=== PATIENT | female | born 1960 | race Hispanic/Latino ===

== ENCOUNTER 2016-11-23 08:07 | Emergency (ER) | payer OTHER, MEDICAID ==
[2016-11-23] MEDS ORDERED: MORPHINE SULFATE 2 MG/ML SYR ONE (08:43)
[2016-11-23] MEDS ORDERED: NITROGLYCERIN 250 ML IV ONE (08:43)
[2016-11-23 08:44] LABS: BLOOD UREA NITROGEN 16 mg/dL (7-17); CALCIUM 9.2 mg/dL (8.4-10.2); CHLORIDE 106 mmol/L (98-107); CREATININE 0.9 mg/dL (0.5-1.0); EST GLOMERULAR FILTRATION RATE > 60 mL/min; MAGNESIUM 1.1 mg/dL (1.6-2.3); POTASSIUM 3.8 mmol/L (3.5-5.1); SODIUM 140 mmol/L (137-145)
[2016-11-23 08:49] LABS: GLUCOSE 256 mg/dL (70-100)
--- NOTE | 2016-11-23 08:52 | RADIOLOGY REPORT ---
HISTORY: Chest pain COMPARISON: None. FINDINGS: Single portable upright view of the chest was obtained. Postoperative changes of previous median sternotomy and CABG are noted. The heart is not enlarged. Me diastinum is not widened. There is atherosclerotic calcification of the aorta. The aortic knob is not enlarged. The trachea is midline. Pulmonary vascularity is within normal limits. Lungs are hypoventilated. No confluent infiltrate or consolidation. There is elevation of the right d iaphragm. No pneumothorax or pleural effusion. IMPRESSION: 1. Postoperative changes of previous median sternotomy and CABG. 2. No acute chest disease. Final Electronic Signature: This report was electronically signed by hTai Redman MD on 11/23/2016 8:4 9 AM. [facility] /
[2016-11-23 08:54] LABS: BASOPHILS 0.6 % (0.0-2.0); EOSINOPHILS 6.2 % (0.0-6.0); EOSINOPHILS# 0.4 X 10^3uL (0.0-0.4); HEMATOCRIT 39.8 % (36.0-48.0); HEMOGLOBIN 13.3 g/dL (12.0-16.0); LYMPHOCYTES 25.6 % (20.0-40.0); LYMPHOCYTES# 1.5 X 10^3uL (0.8-3.8); MEAN CORPUS. HGB CONCENTRATION 33.4 g/dL (32.0-36.0); MEAN CORPUSCULAR HEMOGLOBIN 29.4 pg (29.0-35.0); MEAN PLATELET VOLUME 7.3 fL (7.4-10.4); MONOCYTES 5.1 % (2.0-10.0); MONOCYTES# 0.3 X 10^3uL (0.2-1.0); NEUTROPHILS 62.5 % (54.0-75.0); NEUTROPHILS# 3.5 X 10^3uL (2.6-6.7); PLATELET COUNT 222 X 10^3uL (130-440); RED BLOOD COUNT 4.52 X 10^6uL (4.20-6.10); RED CELL DISTRIBUTION WIDTH 13.1 % (11.5-14.5); WHITE BLOOD COUNT 5.7 X 10^3uL (3.9-10.7)
[2016-11-23 08:56] LABS: TROPONIN I < 0.012 ng/mL (0.00-0.034)
[2016-11-23] MEDS ORDERED: MAGNESIUM SULFATE IV ONE (10:00)
[2016-11-23] MEDS ORDERED: DEXTROSE 5% IV ONE (10:00)
--- NOTE | 2016-11-23 14:59 | ER NURSING DOCUMENTATION ---
Nurse's Notes [facility] Name:Zuleima Julio Age:56 yrs Sex:Female :1960 Arrival Date:11/23/2016 Time:08:07 BedTrauma C Private MD:Nori Lomeli Diagnosis:Chest Pain;Hypomagnesemia Presentation: 11/23 08:08 Presenting complaint: Patient states: pt had chest pain on and off yesterday then today st at 7:30 AM the pain became constant and was not relieved by three nitros. Pt states she has had SOB with it and that it feels similar )though not as bad) as her other cardiac complaints. Transition of care: Home. AIR CAT ACTIVATION no. Asprin Given Given in ED. 08:08 Method Of Arrival: Private Vehicle st 08:22 Acuity: ADAMARIS 2 st 08:28 Notified ED Physician of Dr. Omalley notified. st Triage Assessment: 08:08 General: Appears uncomfortable, Behavior is agitated, cooperative. Pain: Complains of st pain in left breast Pain currently is 9 out of 10 on a pain scale. Pain began 2 hours ago. Cardiovascular: Capillary refill < 3 seconds Heart tones present Pulses are all present. Reports shortness of breath Rhythm is regular Chest pain radiates none has moved or radiated since the onset. No movement or migration of chest pain, began 2 hours prior to arrival. Respiratory: No deficits noted. GI: No deficits noted. Historical: - Allergies: Vicodin; - Home Meds: 1. amlodipine oral 2. aspirin 81 mg oral tab 1 tab once daily 3. Atrovastatin 4. metformin oral 5. carvedilol oral 6. clopidogrel oral 7. glyburide Oral 8. losartan oral 9. ProAir HFA inhalation - PMHx: CAD; DIABETES - IDDM; - PSHx: CABG; TONSILLECTOMY; ; - Tetanus: < 10 years. - Ebola Screening: : Patient denies exposure to infectious person. Patient denies travel to an Ebola-affected area in the 21 days before illness onset. . - Immunization history: Pneumococcal vaccine status is unknown. - Social history: Smoking status: Patient states former smoker of tobacco. Patient/guardian denies using alcohol, marijuana. Screenin:01 Infectious Disease Risk None. Abuse screen: Denies threats or abuse. Denies injuries st from another. pt feels safe at home. Nutritional screening: No deficits noted. Assessment: 09:31 General: pt resting quietly.. st 10:15 General: pt resting quietly pt remains pain free. . st 11:39 General: pt is waiting on cardiac consult. . st 13:24 General: pt going to stress test. . st Vital Signs: 08:16 BP 115 / 69; Pulse 69; Resp 18; Pulse Ox 93% on R/A; Pain 7/10; st 08:35 BP 103 / 65; Pulse 69; Resp 20; Pulse Ox 93% ; st 08:40 Pain 3/10; st 08:40 BP 105 / 65; Pulse 70; Resp 18; Pulse Ox 91% ; st 08:50 BP 112 / 69; Pulse 69; Resp 18; Pulse Ox 93% ; st 08:57 Pain 1/10; st 09:00 BP 105 / 64; Pulse 68; Resp 16; Pulse Ox 90% ; st 09:10 BP 98 / 64; Pulse 74; Pulse Ox 88% ; st 09:12 Pain 0/10; st 09:20 BP 112 / 62; Pulse 71; Resp 18; Pulse Ox 91% ; st 09:30 BP 93 / 57; Pulse 65; Resp 18; Pulse Ox 89% ; st 09:31 Pain 0/10; st 09:40 BP 96 / 56; Pulse 66; Resp 18; Pulse Ox 92% ; st 09:50 BP 98 / 60; Pulse 64; Resp 17; Pulse Ox 93% ; st 10:00 BP 100 / 59; Pulse 61; Resp 17; Pulse Ox 93% ; st 10:10 BP 102 / 59; Pulse 66; Resp 19; Pulse Ox 93% on 2 lpm NC; st 10:30 BP 96 / 59; Pulse 74; Resp 16; Pulse Ox 93% ; st 10:40 BP 93 / 59; Resp 16; Pulse Ox 94% on 2 lpm NC; Pain 0/10; st 10:50 BP 94 / 52; Pulse 69; Resp 20; Pulse Ox 96% ; st 11:00 BP 95 / 61; Pulse 63; Pulse Ox 98% ; Pain 0/10; st 11:10 BP 90 / 63; Pulse 65; Resp 18; Pulse Ox 98% ; st 11:20 BP 105 / 64; Pulse 77; Resp 20; Pulse Ox 99% ; st 11:30 BP 106 / 61; Pulse 60; Resp 13; st 11:40 BP 104 / 61; Pulse 73; Resp 15; Pulse Ox 99% ; Pain 0/10; st 11:50 BP 107 / 72; Pulse 69; Resp 15; Pulse Ox 100% ; st 12:00 BP 111 / 70; Pulse 84; Resp 18; Pulse Ox 97% ; st 12:30 BP 108 / 86; Pulse 65; Resp 17; Pulse Ox 92% ; Pain 0/10; st 12:40 BP 123 / 72; Pulse 64; Resp 14; Pulse Ox 100% ; st 13:00 BP 121 / 77; Pulse 75; Resp 16; Pulse Ox 98% on 2 lpm NC; st 13:11 BP 133 / 76; Pulse 69; Resp 19; st 14:24 BP 121 / 74; Pulse 84; Pulse Ox 93% on R/A; Pain 0/10; st ED Course: 08:08 Patient arrived in ED. ama 08:08 Nori Lomeli DO is Private Physician. ama 08:13 EKG done per protocol. Performed by ED Staff. Shown to ED physician. st 08:15 Inserted peripheral IV: 20 gauge in right antecubital area and blood collected. st 08:22 Fina Desai RN is Primary Nurse. st 08:[address] 08:37 Port Xray Completed. ms 09:01 Valuables Remains with patient Patient has correct armband on for positive st identification. Placed in gown. Bed in low position. Side rails up X 1. research director on. Pulse ox on. NIBP on. 09:02 Gonzalez Omalley MD is Attending Physician. tl1 09:31 Oxygen Oxygen administration via nasal cannula @ 2L/min. st 10:[address] 13:08 Assisted to bathroom. pt is not dizzy and denies any chest pain with walk to restroom. st 14:47 Nori Lomeli DO is Referral Physician. tl1 14:48 Tyler Rubio MD is Referral Physician. tl1 Administered Medications: 08:36 Drug: morphine 2 mg; Route: IVP; Site: right antecubital; st 08:43 Follow up: Response: Pain is decreased st 08:37 Drug: NS 0.9% 1000 ml; Route: IV; Rate: 50 ml/hr; Site: right antecubital; st 11:14 Follow up: IV Status: Completed infusion; IV Intake: 200ml st 08:40 Drug: Aspirin 162 mg; Route: PO; st 08:43 Follow up: Response: No adverse reaction st 08:48 Drug: Nitro Drip - (Nitroglycerin 50 mg, D5W 250 ml); Route: IV; Rate: 10 mcg/min; st Site: right antecubital; 08:57 Follow up: Rate change 15 mcg/min st 10:52 Follow up: IV Status: Infusion discontinued st 09:30 Drug: Magnesium Sulfate 2 grams; Route: IVPB; Infused Over: 2 hrs; Site: right st antecubital; 11:28 Follow up: IV Status: Completed infusion; IV Intake: 100ml st 11:14 Drug: NS 0.9% 500 ml; Route: IV; Rate: bolus; Site: right antecubital; st 13:12 Follow up: IV Status: Completed infusion; IV Intake: 800ml st Intake: 11:14 IV: 200ml; Total: 200ml. st 11:28 IV: 100ml; Total: 300ml. st 13:12 IV: 800ml; Total: 1100ml. st Outcome: 13:28 Transferred: st 14:48 IV D/Paulino st 14:49 Discharge ordered by . tl1 14:58 Condition: improved st 14:58 Discharge instructions given to patient, Instructed on discharge instructions, follow up and referral plans. medication usage, Prescriptions given X 1. 14:59 Patient [address] the ED. st 03/04 09:11 Discharge F/U Call: Unable to reach: no answer st Signatures: Fina Desai RN RN st StricklandRobina ms, Andrew, Beni Reg Gonzalez Patricia MD MD tl1
--- NOTE | 2016-11-23 14:59 | ER PHYSICIAN DOCUMENTATION ---
Physician Documentation [facility] Name:Zuleima Julio Age:56 yrs Sex:Female :1960 Arrival Date:11/23/2016 Time:08:07 BedTrauma C Private MD:Nori Lomeli ED, Tom Disposition: 11/23 16:45 Critical Care: not applicable. tl1 17:43 Chart complete. tl1 Disposition: 11/23/16 14:49 Discharged to Home/Self Care. Impression: Chest Pain, Hypomagnesemia. - Condition is Good. - Discharge Instructions: CHEST PAIN, Noncardiac. - Prescriptions for Nitrostat 0.4 mg Sublingual Tablet, Sublingual - place 1 tablet by SUBLINGUAL route one time As needed - at the first sign of an attack; no more than 3 tablets are recommended within a 15 minute period.; 25 tablet. - Medical Reconciliation form form. - Follow up: Nori Lomeli DO; When: 7 - 10 days; Reason: Recheck today's complaints, Continuance of care. Follow up: Tyler Rubio MD; When: 4- 6 days; Reason: Recheck today's complaints, Continuance of care. - Problem is an ongoing problem. - Symptoms have improved. - Notes: YOUR MAGNESIUM WAS FAIRLY LOW. FOR NOW, EATFOODS WITH A HIGH MAGNESIUM CONTENT SUCH DARK LEAFY GREENS, NUTS AND SEEDS, FISH, SOYBEANS, AVOCADOS, BANANAS AND DARK CHOCOLATE. HPI: 08:45 This 56 yrs old Female presents to ER via Private Vehicle with complaints of Chest Pain.tl1 09:00 . tl1 09:30 She has a history of CAD, s/p CABG X 5 in 2013, and PTCA x 2 in 02/05. 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 Since then she said she has done well until yesterday when she had several episodes of sharp, left infrapectoral pain, that came on at rest, and which lasted no more than 2 minutes. She did not take SLNTG for any of these. She was OK overnight until about 8 AM when while sitting she had the recurrence of the same type of pain, with some slight left shoulder discomfort. This was 8/10 after a few minutes. She took SLNTG X 2, with a decrease in the pain to about a 3/10, and has not further diminished. No dyspnea, n/v/palpitations, diaphoresis. . 16:45 . tl1 Historical: - Allergies: Vicodin; - Home Meds: 1. amlodipine oral 2. aspirin 81 mg oral tab 1 tab once daily 3. Atrovastatin 4. metformin oral 5. carvedilol oral 6. clopidogrel oral 7. glyburide Oral 8. losartan oral 9. ProAir HFA inhalation - PMHx: CAD; DIABETES - IDDM; - PSHx: CABG; TONSILLECTOMY; ; - Tetanus: < 10 years. - Ebola Screening: : Patient denies exposure to infectious person. Patient denies travel to an Ebola-affected area in the 21 days before illness onset. . - Immunization history: Pneumococcal vaccine status is unknown. - Social history: Smoking status: Patient states former smoker of tobacco. Patient/guardian denies using alcohol, marijuana. ROS: 09:30 Cardiovascular: Positive for chest pain, Negative for edema, orthopnea, palpitations, tl1 paroxysmal nocturnal dyspnea. 09:30 Respiratory: Negative for cough, orthopnea, shortness of breath, wheezing. 09:30 Abdomen/GI: Negative for abdominal pain, nausea, vomiting, diarrhea. 09:30 All other systems are negative. Exam: 09:30 Constitutional: This is a well developed, well nourished patient who is awake, alert, tl1 and in no acute distress. Head/Face: Normocephalic, atraumatic. Eyes: Pupils equal round and reactive to light, extra-ocular motions intact. Lids and lashes normal. Conjunctiva and sclera are non-icteric and not injected. Cornea within normal limits. Periorbital areas with no swelling, redness, or edema. ENT: Nares patent. No nasal discharge, no septal abnormalities noted. Tympanic membranes are normal and external auditory canals are clear. Oropharynx with no redness, swelling, or masses, exudates, or evidence of obstruction, uvula midline. Mucous membranes moist. Neck: Trachea midline, no thyromegaly or masses palpated, and no cervical lymphadenopathy. Supple, full range of motion without nuchal rigidity, or vertebral point tenderness. No Meningismus. Chest/axilla: Normal chest wall appearance and motion. Nontender with no deformity. No lesions are appreciated. Cardiovascular: Regular rate and rhythm with a normal S1 and S2. No gallops, murmurs, or rubs. Normal PMI, no JVD. No pulse deficits. Respiratory: Lungs have equal breath sounds bilaterally, clear to auscultation and percussion. No rales, rhonchi or wheezes noted. No increased work of breathing, no retractions or nasal flaring. Abdomen/GI: Soft, non-tender, with normal bowel sounds. No distension or tympany. No guarding or rebound. No evidence of tenderness throughout. Skin: Warm, dry with normal turgor. Normal color with no rashes, no lesions, and no evidence of cellulitis. MS/ Extremity: Pulses equal, no cyanosis. Neurovascular intact. Full, normal range of motion. 09:30 Neuro: Awake and alert, GCS 15, oriented to person, place, time, and situation. tl1 Cranial nerves II-XII grossly intact. Motor strength 5/5 in all extremities. Sensory grossly intact. Cerebellar exam normal. Normal gait. Vital Signs: 08:16 BP 115 / 69; Pulse 69; Resp 18; Pulse Ox 93% on R/A; Pain 7/10; st 08:35 BP 103 / 65; Pulse 69; Resp 20; Pulse Ox 93% ; st 08:40 Pain 3/10; st 08:40 BP 105 / 65; Pulse 70; Resp 18; Pulse Ox 91% ; st 08:50 BP 112 / 69; Pulse 69; Resp 18; Pulse Ox 93% ; st 08:57 Pain 1/10; st 09:00 BP 105 / 64; Pulse 68; Resp 16; Pulse Ox 90% ; st 09:10 BP 98 / 64; Pulse 74; Pulse Ox 88% ; st 09:12 Pain 0/10; st 09:20 BP 112 / 62; Pulse 71; Resp 18; Pulse Ox 91% ; st 09:30 BP 93 / 57; Pulse 65; Resp 18; Pulse Ox 89% ; st 09:31 Pain 0/10; st 09:40 BP 96 / 56; Pulse 66; Resp 18; Pulse Ox 92% ; st 09:50 BP 98 / 60; Pulse 64; Resp 17; Pulse Ox 93% ; st 10:00 BP 100 / 59; Pulse 61; Resp 17; Pulse Ox 93% ; st 10:10 BP 102 / 59; Pulse 66; Resp 19; Pulse Ox 93% on 2 lpm NC; st 10:30 BP 96 / 59; Pulse 74; Resp 16; Pulse Ox 93% ; st 10:40 BP 93 / 59; Resp 16; Pulse Ox 94% on 2 lpm NC; Pain 0/10; st 10:50 BP 94 / 52; Pulse 69; Resp 20; Pulse Ox 96% ; st 11:00 BP 95 / 61; Pulse 63; Pulse Ox 98% ; Pain 0/10; st 11:10 BP 90 / 63; Pulse 65; Resp 18; Pulse Ox 98% ; st 11:20 BP 105 / 64; Pulse 77; Resp 20; Pulse Ox 99% ; st 11:30 BP 106 / 61; Pulse 60; Resp 13; st 11:40 BP 104 / 61; Pulse 73; Resp 15; Pulse Ox 99% ; Pain 0/10; st 11:50 BP 107 / 72; Pulse 69; Resp 15; Pulse Ox 100% ; st 12:00 BP 111 / 70; Pulse 84; Resp 18; Pulse Ox 97% ; st 12:30 BP 108 / 86; Pulse 65; Resp 17; Pulse Ox 92% ; Pain 0/10; st 12:40 BP 123 / 72; Pulse 64; Resp 14; Pulse Ox 100% ; st 13:00 BP 121 / 77; Pulse 75; Resp 16; Pulse Ox 98% on 2 lpm NC; st 13:11 BP 133 / 76; Pulse 69; Resp 19; st 14:24 BP 121 / 74; Pulse 84; Pulse Ox 93% on R/A; Pain 0/10; st MDM: 09:00 Patient took aspirin in the Emergency Department. Patient did not receive fibrinolytic tl1 due to. Data reviewed: vital signs, nurses notes, diagnostic data from outside facility, old medical records, lab test result(s), EKG, radiologic studies, and as a result, I will discharge patient. Data interpreted: monitoring tech: Pulse oximetry:. ECG:. 09:00 ED course: . ED course: Pain persisted initially in the ED. A NTG drip was started at tl1 10 mcg/min with complete resolution of her pain.. She was symptomatically stable. When her SBP dropped into the mid-80s, the NTG gtt was turned off and her blood pressure returned to the 120 systolic range generally after a 500 ml bolus of NS. She had no further pain and was stable. She was seen in consultation by Dr Gwen Armstrong who took her for a stress Echo after Troponin was undetectable 2 and four hours after the onset of her pain. That stress Echocardiogram was negative. It seems apparent that her chest pain is non-cardiac in nature. I doubt PE, PTX, TAA.. 09:02 Patient medically screened. tl1 10:[address] 11/23 08:50 Order name: BASIC METABOLIC PANEL; Complete Time: 09:13 EDMS 11/23 09:11 Interpretation: SODIUM 140; POTASSIUM 3.8; CARBON DIOXIDE 25; GLUCOSE 256; BLOOD UREA tl1 NITROGEN 16; CREATININE 0.9. 11/23 08:50 Order name: MAGNESIUM; Complete Time: 09:13 EDMS 11/23 09:11 Interpretation: Abnormal: MAGNESIUM 1.1. tl1 11/23 08:57 Order name: CBC AUTO DIF, MDIF/RMOR IF IND; Complete Time: 09:13 EDMS 11/23 09:11 Interpretation: Normal: WHITE BLOOD COUNT 5.7; HEMOGLOBIN 13.3; HEMATOCRIT 39.8; tl1 PLATELET COUNT 222. 11/23 08:57 Order name: TROPONIN I; Complete Time: 09:13 EDMS 11/23 09:12 Interpretation: Normal: TROPONIN I < 0.012. tl1 11/23 11:33 Order name: TROPONIN I; Complete Time: 14:49 EDMS 11/23 14:49 Interpretation: Normal: TROPONIN I < 0.012. tl1 11/23 08:53 Order name: CHEST; SING[place]IEW [id number]; Complete Time: 09:13 EDMS 11/23 08:29 Order name: Iv Saline Lock; Complete Time: 08:30 st 11/23 09:30 Order name: Oxygen; Complete Time: 09:30 st EC:13 Rate is 64 beats/min. Rhythm is regular. QRS [place] is Normal. NV interval is normal at tl1 143 msec. QRS interval is normal at 100 msec. QT interval is normal. Q waves are Present in leads III, aVF, aVR. T waves are Flattened. No ST changes noted. Clinical impression: Inferior AL - age indeterminate, No evidence of ischemia, and NSR, with apparently old non-specific TWI and TW flattening. No acute ischemic changes. . Interpreted by me. Reviewed by me. Dispensed Medications: 08:36 Drug: morphine 2 mg; Route: IVP; Site: right antecubital; st 08:43 Follow up: Response: Pain is decreased st 08:37 Drug: NS 0.9% 1000 ml; Route: IV; Rate: 50 ml/hr; Site: right antecubital; st 11:14 Follow up: IV Status: Completed infusion; IV Intake: 200ml st 08:40 Drug: Aspirin 162 mg; Route: PO; st 08:43 Follow up: Response: No adverse reaction st 08:48 Drug: Nitro Drip - (Nitroglycerin 50 mg, D5W 250 ml); Route: IV; Rate: 10 mcg/min; st Site: right antecubital; 08:57 Follow up: Rate change 15 mcg/min st 10:52 Follow up: IV Status: Infusion discontinued st 09:30 Drug: Magnesium Sulfate 2 grams; Route: IVPB; Infused Over: 2 hrs; Site: right st antecubital; 11:28 Follow up: IV Status: Completed infusion; IV Intake: 100ml st 11:14 Drug: NS 0.9% 500 ml; Route: IV; Rate: bolus; Site: right antecubital; st 13:12 Follow up: IV Status: Completed infusion; IV Intake: 800ml st Signatures: Fina Desai, RN Gonzalez Josue MD MD tl1
--- NOTE | 2016-11-23 15:17 | CONSULTATION ---
DATE OF CONSULTATION: 11/23/16 REASON FOR CONSULTATION: Chest pain. HISTORY OF PRESENT ILLNESS: A 56-year-old female status post 5 vessel CABG in 2013, status post stent left main and circumflex January 2016, chronic systolic congestive heart failure, diabetes, presents to the emergency room with chest pain. She was actually seen in our office 2 days ago and was feeling well. However, she has been under new stress as her recently had surgery and she is trying to work both jobs. Yesterday she had some intermittent chest pain that was sharp, left substernal located under her left breast. Today the pain was more constant and intense up to a 9/10 in intensity. She did have some radiation of the pain to her left shoulder blade. There was no associated shortness of breath, nausea, lightheadedness, diaphoresis. She denies orthopnea , PND, lower extremity edema. She had one episode of dizziness yesterday. PAST MEDICAL HISTORY 1. Coronary artery disease status post 5 vessel CABG in 2013, status post stents to left main and left circumflex January 2016. 2. Chronic systolic congestive heart failure. 3. Diabetes. 4. Dyslipidemia. 5. Hypertension. 6. The patient denies any history of lung disease, stroke, clotting disorder. OUTPATIENT MEDICATIONS: Reviewed. CARDIOVASCULAR MEDICATIONS: Include Aspirin 81 mg daily. Atorvastatin 80 mg daily. Plavix 75 mg daily. Losartan 50 mg daily. Carvedilol 25 mg twice daily. ALLERGIES: To Tylenol, hydrocodone. SOCIAL HISTORY: She quit smoking over 6 years ago. She has 3-4 caffeinated beverages daily. She denies alcohol intake. FAMILY HISTORY: Is positive for heart disease in her father and her paternal grandfather. REVIEW OF SYSTEMS GENERAL: Denies fatigue. HEENT: Denies headache. Sight: Denies blurry vision. RESPIRATORY: Denies cough. GASTROINTESTINAL: Denies abdominal pain. GENITOURINARY: Denies dysuria. MUSCULOSKELETAL: Denies arthralgias. NEUROLOGIC: Denies numbness. HEMATOLOGY: Denies easy bruising. ENDOCRINE: Denies temperature changes. PSYCHIATRIC: Denies mood changes. PHYSICAL EXAMINATION GENERAL: Well-nourished, well-developed, no acute distress. Speaking in complete sentences without difficulty. HEENT: Normal. Eyes: Normal. NECK: Unable to visualize JVP. No carotid bruits. Normal thyroid. HEART: Regular rate and rhythm. No murmurs, rubs or gallops. LUNGS: Clear to auscultation bilaterally. ABDOMEN: Nondistended. EXTREMITIES: No edema, +2 radial pulses. Normal tone. SKIN: No rashes. NEUROLOGIC: Alert. LABORATORY DATA: Hemoglobin 13.3, potassium 3.8, creatinine 0.9. Troponin undetectable times 2. Magnesium 1.1. IMPRESSION 1. Chest pain. 2. Coronary artery disease as described above. 3. Diabetes. 4. Hypertension. 5. Dyslipidemia. 6. Hypomagnesemia. PLAN: Her magnesium needs to be rechecked and replaced if confirmed to be this low. Her EKG was reviewed by me and showed normal sinus rhythm with nonspecific ST and T wave changes that are not significantly changed compared to a prior EKG last January. Her troponin is undetectable times 2. We will arrange for her to undergo a stress echocardiogram today and if no high risk findings are noted she can be discharged home and followup in Cardiology Clinic early next week. CHARLES
== END 2016-11-23 14:59 | disposition home or self-care (01) ==
LOC: ER 08:07
DX: R07.9 Chest pain, unspecified (principal); E83.42 Hypomagnesemia; I25.10 Atherosclerotic heart disease of native coronary artery without angina pectoris; Z95.1 Presence of aortocoronary bypass graft; I10 Essential (primary) hypertension; E11.9 Type 2 diabetes mellitus without complications; E78.5 Hyperlipidemia, unspecified; Z79.899 Other long term (current) drug therapy; Z79.82 Long term (current) use of aspirin
CPT/HCPCS: 36415; 71010; 80048; 83735; 84484; 85025; 93005; 93351; 96361; 96365; 96366; 96367; 96368; 96375; 99285; J2270; J3475